=== PATIENT | female | born 1945 | race Caucasian/White ===

== ENCOUNTER → 2018-03-14 | Outpatient (CLI) | payer MEDICARE ==
--- NOTE | 2018-03-14 10:24 | RADIOLOGY REPORT (SQ) ---
EXAM DESCRIPTION: CT ABD/PELVIS NO ORAL OR IV COMPLETED DATE/TIME: 03/14/2018 10:09 am REASON FOR STUDY: ABDOMINAL PAIN, NAUSEA AND VOMITING R10.9 UNSPECIFIED ABDOMINAL PAIN R11.2 NAUSE A WITH VOMITING, UNSPECIFIED COMPARISON: None. TECHNIQUE: CT scan of the abdomen and pelvis performed without intravenous or oral contrast. Images reviewed with lung, soft tissue, and bone windows. Reconstructed coronal and sagittal MPR images revi ewed. All images stored on PACS. All CT scanners at this facility use dose modulation, iterative reconstruction, and/or weight based d osing when appropriate to reduce radiation dose to as low as reasonably achievable (ALARA). [facility]: Dose Right [facility]: CareDose [facility]: Dose Right [facility]: Teradose 4D [facility]: [employer] RADIATION DOSE: CT Rad equipment meets quality standard of care and radiation dose reduction techniq ues were employed. CTDIvol: 16.4 mGy. DLP: 821 mGy-cm.mGy. LIMITATIONS: None. FINDINGS: LOWER CHEST: No significant findings. No nodules or infiltrates. NON-CONTRASTED LIVER, SPLEEN, ADRENALS: Evaluation limited by lack of IV contrast. No identified sign ificant masses. Calcified granulomata liver and spleen. PANCREAS: No masses. Inflammatory changes along the head of the pancreas appear to be related to the seconds and 3rd portions of duodenum. . GALLBLADDER: Surgically absent. RIGHT KIDNEY AND URETER: No suspicious masses. Assessment limited by lack of IV contrast. No signif icant calcifications. No hydronephrosis or hydroureter. LEFT KIDNEY AND URETER: No suspicious masses. Assessment limited by lack of IV contrast. No signifi cant calcifications. No hydronephrosis or hydroureter. AORTA AND RETROPERITONEUM: No aneurysm. No retroperitoneal masses or adenopathy. BOWEL AND PERITONEAL CAVITY: Inflammatory changes along the duodenal bulb and seconds and 3rd portion s of the duodenum. No definitive ulcer but certainly raises the question of peptic ulcer disease. C ommon bile duct measures 1.3 cm. Possibly related to prior cholecystectomy. APPENDIX: Normal. PELVIS, BLADDER, AND ABDOMINAL WALL:No abnormal masses. No free fluid. Bladder normal. BONES: No significant findings. OTHER: No other significant finding. IMPRESSION: Inflammatory changes along the duodenal bulb, seconds, 3rd portions of the duodenum iban cent to the pancreas. No definitive ulcer. Findings appear to be primarily related to the duodenum rather than the pancreas, however pancreatitis is in the differential. Dilated common bile duct 1.3 cm. Possibly related to prior cholecystectomy. COMMENT: Quality ID # [id number]: Final reports with documentation of one or more dose reduction techniques (e.g., Automated exposure control, adjustment of the mA and/or kV according to patient size, use of iterative reconstruction technique) TECHNICAL DOCUMENTATION: JOB ID: [id number] 1540 [employer]- All Rights Reserved Reading location - IP/workstation name: [email or web address]
== END ==
LOC: RAD 09:49
PROVIDERS: ATTEND Internal Medicine
DX: R10.9 Unspecified abdominal pain (principal); R11.2 Nausea with vomiting, unspecified
CPT/HCPCS: 74176

== ENCOUNTER → 2019-01-14 | Day surgery (SDC) | payer MEDICARE ==
[~2019-01-14] MED LIST: BUPIVACAINE HCL 0.5 % INJ/PF 30 ML SDV ONE; LIDOCAINE 1% INJ-PF (10 MG/ML) 30 ML SDV ONE
--- NOTE | 2019-01-14 10:51 | Operative Report ---
PREOPERATIVE DIAGNOSIS: Spondylolisis without myopathy or radiculopathy M47.818// Lumbar Sacral Spondylolisis without myopathy or radiculopathy M47.817 POSTOPERATIVE DIAGNOSIS:Spondylolisis without myopathy or radiculopathy M47.818// Lumbar Sacral Spondylolisis without myopathy or radiculopathy M47.817 PROCEDURE: 1. Radiofrequency Ablation of left L5 dorsal Ramus 2. Sacroiliac Joint Ablation - Lateral Branches of left S1, S2, S3 DATE OF PROCEDURE: January 14, 2019 ANESTHESIA: Local COMPLICATIONS: None CONSENT: A full description of the procedure was provided including benefits as well as possible complications. All questions were answered and informed consent was given and signed. ASA guidelines for fasting were verified prior to sedation. PROCEDURE IN DETAIL The patient was brought into the fluoroscopy suite and carefully assisted into the prone position on the fluoroscopy table and allowed to adjust to a position of comfort. A grounding pad was placed on the right thigh. The low back and buttocks were widely prepped with a chloraprep solution, allowed to air dry and draped in standard sterile surgical fashion. Local anesthesia was provided by 12 mL of 1 % lidocaine delivered with a 25 g needle. PROCEDURE #1: Radiofrequency Ablation of Dorsal Ramus of left L5. A 17g 75 mm radiofrequency introducer needle was placed to the planned anatomic target, guided with intermittent fluoroscopy with a perpendicular approach, to terminally place at the left sacral ala. The stylets were removed and the radiofrequency probes with a 4mm active tip were then inserted. Needle tip position of the probes were verified in the AP, oblique, and lateral views. At each site, the medial branch nerve was stimulated at 2Hz to a maximum of 1-2vo lts determined to finalize safe needle and electrode placement. The patient was awake and responsive during this portion of the procedure. Each target was anesthetized with 2mL of 2 % Sensorcaine anesthesia for lesioning and then each target was lesioned at 80 degrees Celsius for 2 minutes and 30 seconds. Tissue impedences were noted to be between 250 and 500 Ohms. PROCEDURE #2: Radiofrequency Ablation of left S1, S2, S3 Lateral Branches Using the AP fluoroscopic view for visualization of the lateral PSFA as defined by the pre-placed 27-gauge Quincke needles, appropriate skin starting positions were defined. Using the PSFA as a "clock-face", the positions were: S1; left = 1 and 5 oclock S2; left = 1 and 5 oclock S3; left = 3 oclock Using fluoroscopic guidance, a 17g introducer needle was inserted sequentially onto the target positions described above until the introducer tip touched the bony surface of the sacrum. The stylet was withdrawn from the introducer and the radiofrequency probe with a 4 mm active tip was fully inserted into the introducer. A lateral view was obtained for standard reference. At each of the targets, needle placement was verified with the use of multi-planar fluoroscopy. The needle tip position was approximately 7 - 10mm lateral to the PSFA as determined by using an Epsilon ruler. At each site, the lateral branch nerve was stimulated at 2 Hz to a maximum of 1- 2 volts determined to finalize safe needle and electrode placement. The patient was awake and responsive during this portion of the procedure. Each target was anesthetized with 2 mL of 2 % Sensorcaine anesthesia for lesioning and then each target was lesioned at 80 degrees Celsius for 2 minutes and 30 seconds. Tissue impedences were noted to be between 250- 500 Ohms. At the conclusion of the lesioning the needles were removed and bandages placed over the needle placement sites and the patient returned to the supine position on a stretcher and transported to the recovery room without hemodynamic, neurologic, or allergic reactions. Fluoroscopic images were printed for hard copy recording and digitally archived. FLUOROSCOPIC INTERPRETATION: Appropriate epidurogram obtained. Appropriate l esioning of the 10 targets noted. POST PROCEDURE EVALUATION: The patient was comfortable in the recovery room. The patient is aware that pain may worsen before remitting and 4 6 weeks may be required prior to the onset of pain relief. IMPRESSION: 1. Technically successful sacral lateral branch, lumbar dorsal ramus for denervation from L5-S3 on the left without complication. 2. RTC in 2 weeks. 3. Estimated Blood Loss: None 4. Fluoroscopy time: 30 seconds
== END ==
LOC: RAD 09:56
PROVIDERS: ATTEND Family Medicine
DX: M47.817 Spondylosis without myelopathy or radiculopathy, lumbosacral region (principal)
CPT/HCPCS: 64635; 64640 ×3; J3490 ×2

== ENCOUNTER 2019-01-23 19:53 | Observation (INO) | payer MEDICARE ==
--- NOTE | 2019-01-23 20:04 | ER Document Report ---
ED Medical Screen (RME) - General Chief Complaint: Headache Stated Complaint: HEADACHE Time Seen by Provider: 01/23/19 19:59 Primary Care Provider: LANE VEGA DO [Primary Care Provider] - Follow up as needed Mode of Arrival: Wheelchair Information source: Patient Notes: 73-year-old female presents to ED for severe headache with numbness to the right side of her face and neck. She states she went to bed last night she was fine she woke up this morning with this headache and it is not gotten any better. She states she is slept most of the day. She had a carotid endarterectomy on the right in September 2005 she had stents put in the left September 07 of this year and she has renal stents 2005 she states she had a stent put in her abdomen next to her aorta in September 2018. She denies ever having a stroke in the past. She takes blood pressure medicine her blood pressure is 129/38 at this time. She states she is on aspirin at this time she was on Xarelto for a year but has not been on it since September 05. I have greeted and performed a rapid initial assessment of this patient. A comprehensive ED assessment and evaluation of the patient, analysis of test results and completion of medical decision making process will be conducted by an additional ED providers. TRAVEL OUTSIDE OF THE [place] IN LAST 30 DAYS: No - Related Data Allergies/Adverse Reactions: meperidine HCl [From Demerol] Allergy (Unknown, Unverified 03/23/11 08:06) metoclopramide HCl [From Reglan] Allergy (Unknown, Unverified 03/23/11 08:06) Doctor's Discharge - Discharge Referrals: LANE VEGA DO [Primary Care Provider] - Follow up as needed
[2019-01-23 20:52] LABS: ABSOLUTE BASOPHILS # (AUTO) 0.1 10^3/uL (0.0-0.2); ABSOLUTE EOSINOPHILS # (AUTO) 0.2 10^3/uL (0.0-0.6); ABSOLUTE LYMPHOCYTES (AUTO) 1.9 10^3/uL (0.5-4.7); ABSOLUTE NEUT (AUTO) 5.3 10^3/uL (1.7-8.2); BASOPHILS % (AUTO) 1.3 % (0-2); EOSINOPHILS % (AUTO) 2.5 % (0-6); HEMATOCRIT 36.9 % (36.0-47.0); HEMOGLOBIN 11.7 g/dL (12.0-15.5); LYMPHOCYTES % (AUTO) 21.9 % (13-45); MEAN CORPUSCULAR HGB CONC 31.7 g/dL (32.0-36.0); MEAN CORPUSCULAR VOLUME 88 fl (80-97); MONOCYTES % (AUTO) 12.2 % (3-13); PLATELET COUNT 251 10^3/uL (150-450); RED BLOOD COUNT 4.17 10^6/uL (3.72-5.28); RED CELL DISTRIBUTION WIDTH 16.9 % (11.5-14.0); SEGMENTED NEUTROPHILS % (AUTO) 62.1 % (42-78); TOTAL CELLS COUNTED % (AUTO) 100 %; WHITE BLOOD COUNT 8.5 10^3/uL (4.0-10.5)
--- NOTE | 2019-01-23 21:00 | RADIOLOGY REPORT (SQ) ---
EXAM DESCRIPTION: RadLex: CT HEAD WITHOUT IV CONTRAST CLINICAL HISTORY: 73 years Female; Severe headache TECHNIQUE: Noncontrast CT head. All CT scans at this facility use dose modulation, iterative reconstruction, and/or weight based dosing when appropriate to reduce radiation dose to as low as reasonably achievable. COMPARISON: None. FINDINGS: Diaz matter, white matter, ventricles, and cisterns are within normal limits. No acute hemorrhage or mass effect. Visualized portions of paranasal sinuses and mastoids are clear. Visualized portions of the calvarium are within normal limits. IMPRESSION: 1. No acute intracranial findings.
[2019-01-23 21:05] LABS: INTERNATIONAL RATION (INR) 0.98
[2019-01-23 21:10] LABS: ALBUMIN 3.7 g/dL (3.5-5.0); ALKALINE PHOSPHATASE 111 U/L (38-126); ANION GAP 9 (5-19); ASPARTATE AMINO TRANSFERASE 18 U/L (14-36); BILIRUBIN,DIRECT 0.1 mg/dL (0.0-0.4); BILIRUBIN,TOTAL 0.5 mg/dL (0.2-1.3); BLOOD UREA NITROGEN 22 mg/dL (7-20); CARBON DIOXIDE 28 mmol/L (22-30); CHLORIDE 106 mmol/L (98-107); GLUCOSE 124 mg/dL (75-110); TOTAL PROTEIN 6.7 g/dL (6.3-8.2)
[2019-01-23] MEDS ORDERED: NORMAL SALINE 1000 ML 1,000 ML IV ONE (21:55)
[2019-01-23 22:18] LABS: APPEARANCE,URINE CLEAR; BILIRUBIN,URINE NEGATIVE (NEGATIVE); COLOR,URINE YELLOW; GLUCOSE, URINE NEGATIVE (NEGATIVE); KETONES,URINE NEGATIVE (NEGATIVE); LEUKOCYTE ESTERASE,URINE TRACE (NEGATIVE); NITRITE,URINE NEGATIVE (NEGATIVE); PROTEIN,URINE NEGATIVE (NEGATIVE); URINE SPECIFIC GRAVITY 1.013; UROBILINOGEN,URINE NEGATIVE mg/dL (<2.0)
[2019-01-23] MEDS ORDERED: HYDROMORPHONE HCL INJ/PF 2 MG/ML AMPULE IV ONE ×2 (22:46→23:41)
[2019-01-23] MEDS ORDERED: PROMETHAZINE HCL INJ 25 MG/1 ML VIAL IV ONE (22:46)
--- NOTE | 2019-01-23 23:29 | RADIOLOGY REPORT (SQ) ---
EXAM DESCRIPTION: XR CHEST 1 VIEW COMPLETED DATE/TME: 01/23/2019 22:28 CLINICAL HISTORY: possible cva COMPARISON: None FINDINGS: EKG leads project over the chest. The aorta is tortuous. Cardiac silhouette is prominent in size which could be secondary to cardiomegaly. There is no focal parenchymal or pleural disease. There is no acute osseous process visualized. IMPRESSION: No evidence of acute cardiopulmonary disease.
[2019-01-23 23:32] LABS: CREATINE KINASE MB 0.88 ng/mL (<4.55)
[2019-01-23 23:37] LABS: TROPONIN I < 0.012 ng/mL
--- NOTE | 2019-01-24 00:28 | EKG REPORT ---
SEVERITY:- ABNORMAL ECG - SINUS RHYTHM RIGHT BUNDLE BRANCH BLOCK PROBABLE ANTEROSEPTAL INFARCT, AGE INDETERM : Confirmed by: Ton Dickson 24-Jan-2019 00:27:35
--- NOTE | 2019-01-24 00:53 | ER Document Report ---
ED Headache - General Chief Complaint: Headache, Worst Ever Stated Complaint: HEADACHE Time Seen by Provider: 01/23/19 19:59 Mode of Arrival: Wheelchair Notes: Patient is a 73-year-old female presents to the emergency department for right- sided headache and left-sided facial droop. Patient states she woke up this mor jagaur with a pressure in the right side of her head. Patient's denying any URI symptoms or fever. States she has taken a total of 4 extra strength Tylenol throughout the day. States typically when she has routine headaches Tylenol helps. States Tylenol has not helped which is why she presents to the emergency room. Patient voices no history of migraines. Patient denies any upper or lower extremity weakness. Patient's denying any trauma or injury to her head or neck. Patient is denying any fever, rash, exposures to tick bites. Patient voices to nursing staff that this is the "worst headache of her life." Patient does not voice that to myself. I asked her if this is the worst headache of her life and she shakes her head no. Patient lies in bed in no apparent distress has a easy conversation with the lights on. There are no signs of photophobia. She is seen laughing with her grandchildren in the room at one point in time. Patient voices she was on Xarelto for a DVT. States her primary care provider stopped that in September. States she does have an extensive history of peripheral vascular disease with 2 left subclavian stents as well as a stent in her abdomen. TRAVEL OUTSIDE OF THE [place] IN LAST 30 DAYS: No - Related Data Allergies/Adverse Reactions: meperidine HCl [From Demerol] Allergy (Unknown, Unverified 03/23/11 08:06) metoclopramide HCl [From Reglan] Allergy (Unknown, Unverified 03/23/11 08:06) Past Medical History - General Information source: Patient - Social History Smoking Status: Never Smoker Family History: Reviewed & Not Pertinent Patient has suicidal ideation: No Patient has homicidal ideation: No Review of Systems - Review of Systems Constitutional: denies: Fever EENT: No symptoms reported Cardiovascular: denies: Chest pain, Dyspnea Respiratory: denies: Short of breath Gastrointestinal: denies: Abdominal pain Genitourinary: No symptoms reported Female Genitourinary: No symptoms reported Musculoskeletal: No symptoms reported Skin: No symptoms reported Hematologic/Lymphatic: No symptoms reported Neurological/Psychological: See HPI Physical Exam - Vital signs Vitals: Temp Pulse Resp BP Pulse Ox 98.1 F 57 L 18 129/38 H 93 01/23/19 19:59 01/23/19 19:59 10 19:59 10 19:59 10 19:59 - Notes Notes: GENERAL: Alert, interacts well. No acute distress. HEAD: Normocephalic, atraumatic. Slight left facial droop noted. EYES: Pupils equal, round, and reactive to light. Extraocular movements intact. ENT: Oral mucosa moist, tongue midline. NECK: Full range of motion. Supple. Trachea midline. LUNGS: Clear to auscultation bilaterally, no wheezes, rales, or rhonchi. No respiratory distress. HEART: Regular rate and rhythm. No murmur ABDOMEN: Soft, non-tender. Non-distended. Bowel sounds present in all 4 quadrants. EXTREMITIES: Moves all 4 extremities spontaneously. No edema, normal radial and dorsalis pedis pulses bilaterally. No cyanosis. 5 out of 5 strength noted all 4 extremities. BACK: no cervical, thoracic, lumbar midline tenderness. No saddle anesthesia, normal distal neurovascular exam. NEUROLOGICAL: Alert and oriented x3. Normal speech. cranial nerves II through XII grossly intact. PSYCH: Normal affect, normal mood. SKIN: Warm, dry, normal turgor. No rashes or lesions noted. Course - Re-evaluation Re-evalutation: I have discussed this case with my attending Dr. Woodard multiple times. He has gone to the bedside to evaluate the patient. Although the patient is stating the pain medication we are administering her is not helping upon my second evaluation she was sleeping, easily arousable on verbal stimuli. Patient has no photophobia, no nuchal rigidity, she denies that this is the worst headache of her life. Patient voices she has slight left-sided facial droop. Mends NIH scale is +2 left patient's left lower extremity has some weakness compared to the right lower extremity and patient's left-sided facial droop. Patient's symptoms all started this morning, she is well out of the window for any TPA candidate. I discussed this case with hospitalist Dr. Holm who will admit the patient to [facility]. 01/24/19 01:49 EKG shows sinus rhythm rate of 61, QTc 464, RBBB. - Vital Signs Vital signs: Temp Pulse Resp BP Pulse Ox 98.1 F 59 L 12 101/39 L 98 01/23/19 19:59 01/23/19 22:30 01/24/19 01:01 01/24/19 01:01 01/24/19 01:01 - Laboratory Result Diagrams: 01/23/19 20:41 01/23/19 20:41 Laboratory results interpreted by me: 01/23/19 01/23/19 01/23/19 20:41 20:41 21:38 Hgb 11.7 L MCHC 31.7 L RDW 16.9 H BUN 22 H Creatinine 1.40 H Est GFR ( Amer) 44 L Est GFR (MDRD) Non-Af 37 L Glucose 124 H Ur Leukocyte Esterase TRACE H Discharge - Discharge Clinical Impression: TIA (transient ischemic attack) Headache Qualifiers: Headache type: unspecified Headache chronicity pattern: acute headache Intractability: intractable Qualified Code(s): R51 - Headache Condition: Stable Disposition: ADMITTED INPATIENT Admitting Provider: Alta (Hospitalist) Unit Admitted: [facility]
[2019-01-24] MEDS ORDERED: ONDANSETRON HCL INJ/PF 4 MG/2 ML SDV IV PRN (01:23)
[2019-01-24] MEDS ORDERED: MAGNESIUM HYDROXIDE SUSP 30 ML UDCUP PO PRN (01:23)
[2019-01-24] MEDS ORDERED: LABETALOL HCL INJ 20 MG/4 ML DISP.SYRIN IV PRN (01:23)
[2019-01-24] MEDS ORDERED: ACETAMINOPHEN 325 MG TABLET PO PRN (01:23)
[2019-01-24] MEDS ORDERED: TEMAZEPAM 15 MG CAPSULE PO PRN (01:23)
[2019-01-24 02:33] LABS: FREE T3 2.98 pg/mL (2.77-5.27); FREE T4 (FREE THYROXINE) 0.86 ng/dL (0.78-2.19)
[2019-01-24] MEDS: TRAMADOL HCL 50 MG TABLET PO PRN ×2 (03:06→20:16)
--- NOTE | 2019-01-24 03:55 | PDOC H&P ---
History of Present Illness Admission Date/PCP: 01/24/2019 00:54 ZENY LY MD Patient complains of: Left facial numbness History of Present Illness: RENETTA HARRINGTON is a 73 year old female who presented to the emergency room with acute left facial numbness. Patient admits that she woke up this morning with a headache on the right side of her head and left perioral numbness. The mild le ft facial numbness has been persistent throughout the day without change. She describes the headache as a constant severe sharp throbbing pressure sensation of the right parietal and occipital regions with radiation into the posterior cervical region. She tried Tylenol at home without improvement. She denies prior similar episodes and has not identified any additional aggravating or ameliorating factors for her left facial numbness. In the emergency room she was found to have stable vital signs and an unremarkable laboratory and radiographic evaluation for her TIA/CVA. Due to her persistence of symptoms and a plethora of risk factors/comorbidities, the patient was admitted to the [facility] er the stroke protocol. Past Medical History Cardiac Medical History: Reports: Congestive Heart Failure, Coronary Artery Disease, DVT, Hyperlipidema, Hypertension, Peripheral Vascular Disease Denies: Atrial Fibrillation, Myocardial Infarction, Pulmonary Embolism Pulmonary Medical History: Reports: Bronchitis, Chronic Obstructive Pulmonary Disease (COPD), Sleep Apnea Denies: Asthma EENT Medical History: Reports: Nose - Allergic rhinitis Denies: Cataracts, Ears - Hearing aids Neurological Medical History: Reports: Ischemic CVA Denies: Hemorrhagic CVA, Multiple Sclerosis, Seizures Endocrine Medical History: Reports: Obesity Denies: Diabetes Mellitus Type 1, Diabetes Mellitus Type 2, Hyperthyroidism, Hypothyroidism Renal/ Medical History: Reports: Chronic Kidney Disease Denies: Nephrolithiasis Malignancy Medical History: Reports: None GI Medical History: Reports: Diverticulitis, Gastroesophageal Reflux Disease, Peptic Ulcer Disease, Other - Pancreatitis Denies: Cirrhosis, Crohn's Disease, Hepatitis, Ulcerative Colitis Musculoskeltal Medical History: Denies: Arthritis, Gout Skin Medical History: Denies: Eczema, Psoriasis Psychiatric Medical History: Reports: General Anxiety Disorder, Tobacco Dependency, Other - Insomnia Denies: Alcohol Dependency, Substance Abuse Traumatic Medical History: Reports: None Hematology: Reports: Anemia Denies: Bleeding Tendencies Infectious Medical History: Reports: None Past Surgical History Past Surgical History: Sigmoid colectomy, colon polyp removal via colonoscopy, urinary bladder surgery, throat/vocal cord surgery, rectocele repair Past Surgical History: Reports: Appendectomy, Cardiac Catheterization, Carotid Endarterectomy - Right, Cholecystectomy, Herniorrhaphy, Hysterectomy, Knee Replacement, Vascular Surgery - Stents: Bilateral subclavian bypass, bilateral renal arteries, aortic stent Social History Information Source: Patient Lives with: Family Smoking Status: Former Smoker Electronic Cigarette use?: No Frequency of Alcohol Use: Rare Hx Recreational Drug Use: No Drugs: None Hx Prescription Drug Abuse: No - Advance Directive Resuscitation Status: Full Code Surrogate healthcare decision maker:: Carley Talavera Family History Family History: CAD, DM, Hypertension, Other - Alzheimer's disease. denies: Malignancy Parental Family History Reviewed: Yes Children Family History Reviewed: No Sibling(s) Family History Reviewed.: Yes Medication/Allergy Allergies/Adverse Reactions: meperidine HCl [From Demerol] Allergy (Unknown, Unverified 03/23/11 08:06) metoclopramide HCl [From Reglan] Allergy (Unknown, Unverified 03/23/11 08:06) IVP dye Allergy (Uncoded 01/24/19 03:18) Review of Systems Constitutional: PRESENT: as per HPI, headache(s). ABSENT: chills, fever(s) Eyes: ABSENT: visual disturbances, other - Eye pain Ears: ABSENT: hearing changes, other - Ear pain Nose, Mouth, and Throat: ABSENT: mouth pain, sore throat Cardiovascular: ABSENT: chest pain, palpitations Respiratory: ABSENT: cough, dyspnea Gastrointestinal: ABSENT: abdominal pain, constipation, diarrhea, nausea, vomiting Genitourinary: ABSENT: dysuria, hematuria Musculoskeletal: ABSENT: back pain, joint swelling, muscle weakness Integumentary: ABSENT: pruritus, rash Neurological: PRESENT: as per HPI, numbness - Left perioral region. ABSENT: confusion, convulsions, focal weakness, memory loss, syncope, vertigo Psychiatric: ABSENT: anxiety, depression Endocrine: ABSENT: cold intolerance, heat intolerance Hematologic/Lymphatic: ABSENT: easy bleeding, easy bruising Allergic/Immunologic: ABSENT: seasonal rhinorrhea Physical Exam Vital Signs: Temp Pulse Resp BP Pulse Ox 98.1 F 59 L 19 117/48 L 96 01/23/19 19:59 01/23/19 22:30 01/23/19 23:00 01/23/19 23:00 01/23/19 23:00 Intake & Output 1001/23/19 01/24/19 23:59 23:59 23:59 Intake Total 1000 Balance 1000 Weight 85.9 kg General appearance: PRESENT: no acute distress, cooperative Head exam: PRESENT: atraumatic, normocephalic Eye exam: PRESENT: conjunctiva pink. ABSENT: conjunctival injection, scleral icterus Ear exam: PRESENT: normal external ear exam. ABSENT: bleeding, drainage Mouth exam: PRESENT: dry mucosa, neck supple Neck exam: ABSENT: thyromegaly, tracheal deviation Respiratory exam: PRESENT: clear to auscultation jareth, symmetrical, unlabored Cardiovascular exam: PRESENT: RRR. ABSENT: clicks, gallop, rubs Pulses: PRESENT: normal radial pulses, normal dorsalis pedis pul Vascular exam: PRESENT: normal capillary refill. ABSENT: pallor GI/Abdominal exam: PRESENT: normal bowel sounds, soft. ABSENT: tenderness Rectal exam: PRESENT: deferred Extremities exam: ABSENT: joint swelling, pedal edema Musculoskeletal exam: ABSENT: deformity, dislocation Neurological exam: PRESENT: alert, oriented to person, oriented to place, oriented to time, oriented to situation, motor sensory deficit. ABSENT: CN II- XII grossly intact - Minimal muscles of facial expression weakness in the central distribution of left 7th (facial) nerve Psychiatric exam: PRESENT: appropriate affect, normal mood Skin exam: PRESENT: dry, intact, warm. ABSENT: jaundice, rash, urticaria Results Laboratory Results: 01/23/19 20:41 01/23/19 20:41 01/23/19 01/23/19 01/23/19 20:41 20:41 21:38 WBC 8.5 RBC 4.17 Hgb 11.7 L Hct 36.9 MCV 88 MCH 28.0 MCHC 31.7 L RDW 16.9 H Plt Count 251 Seg Neutrophils % 62.1 Sodium 143.3 Potassium 4.0 Chloride 106 Carbon Dioxide 28 Anion Gap 9 BUN 22 H Creatinine 1.40 H Est GFR ( Amer) 44 L Glucose 124 H Calcium 9.0 Total Bilirubin 0.5 AST 18 Alkaline Phosphatase 111 Total Protein 6.7 Albumin 3.7 Urine Color YELLOW Urine Appearance CLEAR Urine pH 5.0 Ur Specific [place] 1.013 Urine Protein NEGATIVE Urine Glucose (UA) NEGATIVE Urine Ketones NEGATIVE Urine Blood NEGATIVE Urine Nitrite NEGATIVE Ur Leukocyte Esterase TRACE H Urine WBC (Auto) 2 Urine RBC (Auto) 1 01/23/19 01/23/19 20:41 20:41 Creatine Kinase 81 CK-MB (CK-2) 0.88 Troponin I < 0.012 Impressions: Head CT 01/23/19 20:04 IMPRESSION: 1. No acute intracranial findings. Chest X-Ray 01/23/19 22:28 IMPRESSION: No evidence of acute cardiopulmonary disease. Assessment and Plan - Diagnosis (1) Left facial numbness Is this a current diagnosis for this admission?: Yes Plan: Patient will be admitted to the stroke protocol on the [facility]. She will have carotid Doppler evaluation as well as an echocardiogram and an MRI of the brain without contrast. Physical therapy, occupational therapy and speech therapy evaluations will be performed. Patient will be referred for consultation with the stroke nurse and dietitian as well as delinquency prevention social worker. She will be treated according to the stroke protocol with appropriate antiplatelet agent as well as appropriate occasions for control of her other chronic medical processes. (2) Headache Qualifiers: Headache type: unspecified Headache chronicity pattern: acute headache Intractability: intractable Qualified Code(s): R51 - Headache Is this a current diagnosis for this admission?: Yes Plan: Patient will receive morphine 2 to 4 mg IV every 2 hours on a as needed basis for control for headache. Associated nausea will be treated with Zofran 4 mg IV every 4 hours. MRI of the brain is ordered. A thyroid profile will be obtained. (3) Chronic renal insufficiency, stage III (moderate) Is this a current diagnosis for this admission?: Yes Plan: Patient will be treated with supportive and symptomatic cares. Her renal failure status will be monitored on regular basis with metabolic profiles. (4) Peripheral vascular disease Is this a current diagnosis for this admission?: Yes Plan: A lipid profile will be obtained. Patient will be further treated based upon the results of her lipid profile. - Time Time Spent with patient: 25-34 minutes Medications reviewed and adjusted accordingly: Yes Anticipated discharge: Home - Inpatient Certification Based on my medical assessment, after consideration of the patient's comorbidities, presenting symptoms, or acuity I expect that the services needed warrant INPATIENT care.: Yes I certify that my determination is in accordance with my understanding of Medicare's requirements for reasonable and necessary INPATIENT services [42 CFR 412.3e].: Yes Medical Necessity: Significant Comorbidiites Make Outpatient Treatment Too Risky, Need Close Monitoring Due to Risk of Patient Decompensation, Need For Continuous Telemetry Monitoring, Need for Neurological Checks, Need for Pain Control, Risk of Complication if Not Cared For in Hospital
[2019-01-24] MEDS ORDERED: KETOROLAC TROMETHAMINE INJ/PF 30 MG/1 ML SDV IV ONE (04:30)
[2019-01-24] MEDS ORDERED: DIAZEPAM INJ 10 MG/2 ML DISP.SYRIN IV ONE (05:00)
[2019-01-24] MEDS ORDERED: DIAZEPAM INJ 10 MG/2 ML DISP.SYRIN IV SCH (06:00)
[2019-01-24] MEDS: HEPARIN SOD (PORCINE) 5,000 UNIT/ML 1 ML VIAL SUBCUT SCH ×3 (06:44→22:23)
[2019-01-24] MEDS ORDERED: DEXAMETHASONE SOD PHOS INJ 10 MG/1 ML VIAL IM ONE (08:20)
[2019-01-24] MEDS ORDERED: KETOROLAC TROMETHAMINE INJ/PF 30 MG/1 ML SDV IV SCH ×2 (09:00→10:00)
[2019-01-24 09:03] LABS: HEMATOCRIT 33.6 % (36.0-47.0); HEMOGLOBIN 10.6 g/dL (12.0-15.5); MEAN CORPUSCULAR HEMOGLOBIN 28.1 pg (27.0-33.4); MEAN CORPUSCULAR HGB CONC 31.7 g/dL (32.0-36.0); MEAN CORPUSCULAR VOLUME 89 fl (80-97); PLATELET COUNT 206 10^3/uL (150-450); RED BLOOD COUNT 3.79 10^6/uL (3.72-5.28); RED CELL DISTRIBUTION WIDTH 16.7 % (11.5-14.0); WHITE BLOOD COUNT 6.4 10^3/uL (4.0-10.5)
[2019-01-24 09:25] LABS: ALBUMIN 3.3 g/dL (3.5-5.0); ALKALINE PHOSPHATASE 97 U/L (38-126); ANION GAP 11 (5-19); ASPARTATE AMINO TRANSFERASE 19 U/L (14-36); BILIRUBIN,DIRECT 0.2 mg/dL (0.0-0.4); BILIRUBIN,TOTAL 0.5 mg/dL (0.2-1.3); BLOOD UREA NITROGEN 20 mg/dL (7-20); CALCIUM 8.8 mg/dL (8.4-10.2); CARBON DIOXIDE 24 mmol/L (22-30); CHLORIDE 110 mmol/L (98-107); CHOLESTEROL 108.29 mg/dL (0-200); GLUCOSE 93 mg/dL (75-110); POTASSIUM 4.7 mmol/L (3.6-5.0); TOTAL PROTEIN 6.1 g/dL (6.3-8.2); TRIGLYCERIDES 132 mg/dL (<150)
[2019-01-24 09:36] LABS: DIRECT LDL 56 mg/dL (<100)
[2019-01-24] MEDS: CLOPIDOGREL BISULFATE 75 MG TABLET PO SCH (09:37)
[2019-01-24] MEDS ORDERED: LIDOCAINE 1% INJ (10 MG/ML) 10 ML MDV INJ ONE (10:30)
[2019-01-24] MEDS ORDERED: METHYLPREDNISOLONE ACETATE INJ 40 MG/1 ML ML IM ONE (10:30)
--- NOTE | 2019-01-24 12:03 | PDOC PROGRESS REPORT ---
Subjective Progress Note for:: 01/24/19 Subjective:: Patient was admitted last night for a right sided occipital parietal headache as well as numbness and tingling over this area. He also was complaining of some left-sided facial numbness. However in reading the ER note as well as the hospitalist note there are several contradictory statements concerning this in the left side of the face, numbness in the left side of the face, worst headache of her life, medicine not helping. There also notation that the patient is seen in the room laughing with her grandchildren. Describes his headache to me as starting in the back of the head on the right side going up over the parietal region. She actually draws a line as to where this pain is located and starts. Exquisitely tender to palpate over the occipital foramen right but not on the left. No signs of focal neurologic deficit. Reason For Visit: NEW ONSET FACIAL WEAKNESS,ACUTE INTRACTABLE Physical Exam Vital Signs: Temp Pulse Resp BP Pulse Ox 97.5 F 52 L 18 109/37 L 93 01/24/19 07:59 01/24/19 08:00 01/24/19 08:00 01/24/19 08:00 01/24/19 08:50 Intake & Output 01/23/19 01/24/19 01/25/19 06:59 06:59 06:59 Intake Total 1100 Balance 1100 Weight 84.7 kg General appearance: PRESENT: mild distress, other - Secondary to pain over the right occipital parietal region Respiratory exam: PRESENT: clear to auscultation jareth. ABSENT: rales, rhonchi, wheezes Cardiovascular exam: PRESENT: RRR. ABSENT: diastolic murmur, rubs, systolic murmur Neurological exam: PRESENT: alert, other - Very tender to palpate over the right occipital foramen, no tenderness over the left side. Psychiatric exam: PRESENT: appropriate affect, normal mood. ABSENT: homicidal ideation, suicidal ideation Results Laboratory Results: 01/24/19 08:14 01/24/19 08:14 01/23/19 01/23/19 01/23/19 20:41 20:41 20:41 WBC 8.5 RBC 4.17 Hgb 11.7 L Hct 36.9 MCV 88 MCH 28.0 MCHC 31.7 L RDW 16.9 H Plt Count 251 Seg Neutrophils % 62.1 Sodium 143.3 Potassium 4.0 Chloride 106 Carbon Dioxide 28 Anion Gap 9 BUN 22 H Creatinine 1.40 H Est GFR ( Amer) 44 L Glucose 124 H Calcium 9.0 Magnesium Total Bilirubin 0.5 AST 18 Alkaline Phosphatase 111 Total Protein 6.7 Albumin 3.7 Triglycerides Cholesterol LDL Cholesterol Direct VLDL Cholesterol HDL Cholesterol TSH Free T4 0.86 Free T3 pg/mL 2.98 Urine Color Urine Appearance Urine pH Ur Specific [place] Urine Protein Urine Glucose (UA) Urine Ketones Urine Blood Urine Nitrite Ur Leukocyte Esterase Urine WBC (Auto) Urine RBC (Auto) 01/23/19 01/24/19 01/24/19 21:38 08:14 08:14 WBC 6.4 RBC 3.79 Hgb 10.6 L Hct 33.6 L MCV 89 MCH 28.1 MCHC 31.7 L RDW 16.7 H Plt Count 206 Seg Neutrophils % Sodium 145.0 Potassium 4.7 Chloride 110 H Carbon Dioxide 24 Anion Gap 11 BUN 20 Creatinine 1.23 Est GFR ( Amer) 52 L Glucose 93 Calcium 8.8 Magnesium 1.6 Total Bilirubin 0.5 AST 19 Alkaline Phosphatase 97 Total Protein 6.1 L Albumin 3.3 L Triglycerides 132 Cholesterol 108.29 LDL Cholesterol Direct 56 VLDL Cholesterol 26.0 HDL Cholesterol 32 L TSH Free T4 Free T3 pg/mL Urine Color YELLOW Urine Appearance CLEAR Urine pH 5.0 Ur Specific [place] 1.013 Urine Protein NEGATIVE Urine Glucose (UA) NEGATIVE Urine Ketones NEGATIVE Urine Blood NEGATIVE Urine Nitrite NEGATIVE Ur Leukocyte Esterase TRACE H Urine WBC (Auto) 2 Urine RBC (Auto) 1 01/24/19 08:14 WBC RBC Hgb Hct MCV MCH MCHC RDW Plt Count Seg Neutrophils % Sodium Potassium Chloride Carbon Dioxide Anion Gap BUN Creatinine Est GFR ( Amer) Glucose Calcium Magnesium Total Bilirubin AST Alkaline Phosphatase Total Protein Albumin Triglycerides Cholesterol LDL Cholesterol Direct VLDL Cholesterol HDL Cholesterol TSH 2.97 Free T4 Free T3 pg/mL Urine Color Urine Appearance Urine pH Ur Specific [place] Urine Protein Urine Glucose (UA) Urine Ketones Urine Blood Urine Nitrite Ur Leukocyte Esterase Urine WBC (Auto) Urine RBC (Auto) 01/23/19 01/23/19 20:41 20:41 Creatine Kinase 81 CK-MB (CK-2) 0.88 Troponin I < 0.012 Impressions: Head CT 01/23/19 20:04 IMPRESSION: 1. No acute intracranial findings. Chest X-Ray 01/23/19 22:28 IMPRESSION: No evidence of acute cardiopulmonary disease. Assessment and Plan - Diagnosis (1) Occipital neuralgia of right side Is this a current diagnosis for this admission?: Yes (2) Facial weakness Is this a current diagnosis for this admission?: Yes (3) Headache Qualifiers: Headache type: unspecified Headache chronicity pattern: acute headache Intractability: intractable Qualified Code(s): R51 - Headache Is this a current diagnosis for this admission?: Yes (4) Peripheral vascular disease Is this a current diagnosis for this admission?: Yes - Plan Summary Summary: Patient CT head scan is negative for acute changes, fortunately she is unable to have an MRI of the brain due to contraindications concerning metal, Patient's clinical presentation concerning her pain, location, history is classical for occipital neuralgia.. Today have injected her right occipital foramen with 1% plain lidocaine approximately 1 cc and Depo-Medrol 4 mg approximately .125 mL's the right occipital foramen. This was DepoMedrol 40mg/ml. Aspiration was performed to ensure nonvascular injection. Patient will continue pain medication as needed. Nurses will monitor and call me for any neurologic changes. Patient was on aspirin 81 mg/day this is been discontinued and is now on Plavix 5 mg daily - Time Time Spent with patient: 35 or more minutes
[2019-01-24] MEDS ORDERED: HYDROXYZINE HCL 10 MG TABLET PO PRN (12:58)
[2019-01-24] MEDS: PANTOPRAZOLE SODIUM 40 MG TABLET.DR PO SCH (16:41)
[2019-01-24] MEDS: OXYCODONE-ACETAMINOPHEN 5-325 MG TABLET PO PRN (18:32)
[2019-01-24] MEDS ORDERED: ATORVASTATIN CALCIUM 40 MG TABLET PO SCH (22:00)
[2019-01-25] MEDS: HEPARIN SOD (PORCINE) 5,000 UNIT/ML 1 ML VIAL SUBCUT SCH ×2 (05:20→13:45)
[2019-01-25] MEDS: OXYCODONE-ACETAMINOPHEN 5-325 MG TABLET PO PRN ×2 (05:26→09:46)
[2019-01-25 06:10] LABS: HEMATOCRIT 32.4 % (36.0-47.0); HEMOGLOBIN 10.2 g/dL (12.0-15.5); MEAN CORPUSCULAR HGB CONC 31.6 g/dL (32.0-36.0); MEAN CORPUSCULAR VOLUME 89 fl (80-97); PLATELET COUNT 201 10^3/uL (150-450); RED BLOOD COUNT 3.65 10^6/uL (3.72-5.28); RED CELL DISTRIBUTION WIDTH 16.6 % (11.5-14.0); WHITE BLOOD COUNT 5.5 10^3/uL (4.0-10.5)
[2019-01-25 06:29] LABS: ANION GAP 6 (5-19); BLOOD UREA NITROGEN 15 mg/dL (7-20); CALCIUM 8.8 mg/dL (8.4-10.2); CARBON DIOXIDE 29 mmol/L (22-30); CHLORIDE 105 mmol/L (98-107); CHOLESTEROL 107.23 mg/dL (0-200); GLUCOSE 102 mg/dL (75-110); POTASSIUM 4.7 mmol/L (3.6-5.0); TRIGLYCERIDES 166 mg/dL (<150)
[2019-01-25 06:39] LABS: DIRECT LDL 46 mg/dL (<100)
[2019-01-25 06:40] LABS: VLDL CHOLESTEROL 33.2 mg/dL (10-31)
--- NOTE | 2019-01-25 07:58 | EKG REPORT ---
SEVERITY:- ABNORMAL ECG - SINUS RHYTHM RIGHT BUNDLE BRANCH BLOCK : Confirmed by: Ton Dickson 25-Jan-2019 07:57:10
[2019-01-25] MEDS: PANTOPRAZOLE SODIUM 40 MG TABLET.DR PO SCH (08:40)
[2019-01-25] MEDS: CLOPIDOGREL BISULFATE 75 MG TABLET PO SCH (09:41)
[2019-01-25] MEDS ORDERED: FUROSEMIDE 20 MG TABLET PO SCH (10:00)
[2019-01-25] MEDS ORDERED: SPIRONOLACTONE 25 MG TABLET PO SCH (10:00)
[2019-01-25] MEDS ORDERED: ESCITALOPRAM OXALATE 10 MG TABLET PO SCH (10:00)
[2019-01-25] MEDS ORDERED: ASCORBIC ACID 500 MG TABLET PO SCH (10:00)
[2019-01-25] MEDS ORDERED: ASPIRIN 81 MG TABLET, CHEWABLE PO SCH (10:00)
[2019-01-25] MEDS ORDERED: AMLODIPINE BESYLATE 5 MG TABLET PO SCH (10:00)
[2019-01-25] MEDS ORDERED: CETIRIZINE 10 MG TABLET PO SCH (10:00)
[2019-01-25] MEDS ORDERED: FERROUS SULFATE 325 MG TABLET PO SCH (10:00)
[2019-01-25] MEDS ORDERED: POTASSIUM CHLORIDE 10 MEQ CAPSULE.ER PO SCH (10:00)
[2019-01-25] MEDS ORDERED: MAGNESIUM OXIDE 400 MG TABLET PO SCH (10:00)
[2019-01-25 13:29] VITALS: BP 149/43
--- NOTE | 2019-01-25 13:48 | RADIOLOGY REPORT (SQ) ---
EXAM DESCRIPTION: CT ABD/PELVIS NO ORAL OR IV COMPLETED DATE/TIME: 01/25/2019 1:09 pm REASON FOR STUDY: retroperitoneal K92.2 GASTROINTESTINAL HEMORRHAGE, UNSPECIFIED COMPARISON: 03/14/2018. TECHNIQUE: CT scan of the abdomen and pelvis performed without intravenous or oral contrast. Images reviewed with lung, soft tissue, and bone windows. Reconstructed coronal and sagittal MPR images revi ewed. All images stored on PACS. All CT scanners at this facility use dose modulation, iterative reconstruction, and/or weight based d osing when appropriate to reduce radiation dose to as low as reasonably achievable (ALARA). [facility]: Dose Right [facility]: CareDose [facility]: Dose Right [facility]: Teradose 4D [facility]: Meez RADIATION DOSE: CT Rad equipment meets quality standard of care and radiation dose reduction techniq ues were employed. CTDIvol: 17.7 mGy. DLP: 908 mGy-cm.mGy. LIMITATIONS: None. FINDINGS: LOWER CHEST: No significant findings. Calcified granuloma in the left lung base. No nodul es or infiltrates. NON-CONTRASTED LIVER, SPLEEN, ADRENALS: Evaluation limited by lack of IV contrast. No identified sign ificant masses. PANCREAS: No masses. No peripancreatic inflammatory changes. GALLBLADDER: No identified stones by CT criteria. No inflammatory changes to suggest cholecystitis. RIGHT KIDNEY AND URETER: No suspicious masses. Assessment limited by lack of IV contrast. No signif icant calcifications. No hydronephrosis or hydroureter. LEFT KIDNEY AND URETER: No suspicious masses. Assessment limited by lack of IV contrast. No signifi cant calcifications. No hydronephrosis or hydroureter. AORTA AND RETROPERITONEUM: No aneurysm. Vascular calcifications. Iliac artery stents. No retroperi toneal masses or adenopathy. BOWEL AND PERITONEAL CAVITY: Sigmoid diverticulosis. No obvious masses or inflammatory changes. No f ree fluid. APPENDIX: Normal. PELVIS, BLADDER, AND ABDOMINAL WALL:Umbilical hernia and midline abdominal wall hernia above the umbi licus, both containing fat. No involvement of bowel. No abnormal masses. No free fluid. Bladder nor mal. BONES: No significant findings. Degenerative changes in the spine. OTHER: No other significant finding. IMPRESSION: 1. SIGMOID DIVERTICULOSIS. NO CT FINDINGS OF DIVERTICULITIS. 2. UMBILICAL HERNIA AND ABDOMINAL WALL HERNIA, BOTH CONTAINING FAT WITH NO INVOLVEMENT OF BOWEL. 3. OTHER CHRONIC FINDINGS ABOVE. NO OTHER SIGNIFICANT OR ACUTE PROCESS IN THE ABDOMEN OR PELVIS. COMMENT: Quality ID # [id number]: Final reports with documentation of one or more dose reduction techniques (e.g., Automated exposure control, adjustment of the mA and/or kV according to patient size, use of iterative reconstruction technique) TECHNICAL DOCUMENTATION: JOB ID: [id number] [employer]- All Rights Reserved Reading location - IP/workstation name: [email or web address]
--- NOTE | 2019-01-25 14:31 | Progress Note ---
Provider Note Provider Note: 01/25/[address] abdomen and pelvis without contrast prior to discharge secondary to abdominal pain. Notes #1 sigmoid diverticulosis no diverticulitis #2 umbilical hernia and abdominal wall hernia both containing fat with no involvement of bowel 3 chronic findings with no acute process in the abdomen or pelvis No relation to Lovenox injections
--- NOTE | 2019-02-02 11:12 | PDOC DISCHARGE SUMMARY ---
Impression - Admit/DC Date/PCP Admission Date/Primary Care Provider: 01/24/19 01:07 ZENY LY MD Discharge Date: 01/25/19 - Discharge Diagnosis (1) Occipital neuralgia of right side Is this a current diagnosis for this admission?: Yes (2) Facial weakness Is this a current diagnosis for this admission?: Yes (3) Headache Is this a current diagnosis for this admission?: Yes (4) Peripheral vascular disease Is this a current diagnosis for this admission?: Yes - Assessment Summary: Patient CT head scan is negative for acute changes, fortunately she is unable to have an MRI of the brain due to contraindications concerning metal, Patient's clinical presentation concerning her pain, location, history is classical for occipital neuralgia.. Today have injected her right occipital foramen with 1% plain lidocaine approximately 1 cc and Depo-Medrol 4 mg approximately .125 mL's the right occipital foramen. This was DepoMedrol 40mg/ml. Aspiration was performed to ensure nonvascular injection. Patient will continue pain medication as needed. Nurses will monitor and call me for any neurologic changes. Patient was on aspirin 81 mg/day this is been discontinued and is now on Plavix 5 mg daily 01/25/2019 She is completely headache free. His only complaint of some mild abdominal pain where she is getting her Lovenox injections. CT scan of the abdomen was performed showing no signs of retroperitoneal hemorrhage. She was discharged home to follow-up with her primary care provider in good condition. No focal neurologic deficits Out on a Medrol Dosepak and Plavix Headache with secondary to occipital neuralgia - Additional Information Resuscitation Status: Full Code Discharge Diet: As Tolerated Discharge Activity: Balance Activity w/Rest Referrals: ZENY LY MD [Primary Care Provider] - 02/11/19 3:15 pm Prescriptions: Methylprednisolone [Medrol Dosepack (4 mg/Tab) 21 Tab/Dosepak] 4 mg PO ASDIR PRN #21 tab.ds.pk PRN Reason: Clopidogrel Bisulfate [Plavix 75 mg Tablet] 75 mg PO DAILY #30 tablet Home Medications: Amlodipine Besylate [Norvasc 5 mg Tablet] 5 mg PO DAILY 01/24/19 Ascorbic Acid [Vitamin C 500 mg Tablet] 500 mg PO DAILY 01/24/19 Aspirin [Aspirin 81 mg Chewable Tablet] 81 mg PO DAILY 01/24/19 Atorvastatin Calcium [Lipitor 40 mg Tablet] 40 mg PO QHS 01/24/19 Cetirizine HCl [Zyrtec 10 mg Tablet] 10 mg PO DAILY 01/24/19 Escitalopram Oxalate [Lexapro] 20 mg PO DAILY 01/24/19 Ferrous Sulfate [Feosol 325 mg Tablet] 325 mg PO DAILY 01/24/19 Furosemide [Lasix 20 mg Tablet] 20 mg PO DAILY 01/24/19 Hydroxyzine HCl [Atarax 10 mg Tablet] 10 mg PO HSP PRN 01/24/19 Losartan Potassium [Cozaar 100 mg Tablet] 100 mg PO DAILY 01/24/19 Magnesium Oxide [Mag-Ox 400 mg Tablet] 400 mg PO DAILY 01/24/19 Metoprolol Succinate [Toprol Xl 25 mg Tab.sr] 25 mg PO DAILY 01/24/19 Pantoprazole Sodium [Protonix [address] Tablet] 40 mg PO BIDACBS 01/24/19 Potassium Chloride [Klor-Con 10 Meq Capsule ER] 10 meq PO DAILY 01/24/19 Promethazine HCl [Phenergan 25 mg Tablet] 25 mg PO Q12HP PRN 01/24/19 Spironolactone [Aldactone 25 mg Tablet] 25 mg PO DAILY 01/24/19 Tramadol HCl/Acetaminophen [Ultracet 37.5 mg/325 mg Tablet] 1 tab PO Q12HP PRN 01/24/19 Clopidogrel Bisulfate [Plavix 75 mg Tablet] 75 mg PO DAILY #30 tablet 01/25/19 Methylprednisolone [Medrol Dosepack (4 mg/Tab) 21 Tab/Dosepak] 4 mg PO ASDIR PRN #21 tab.ds.pk 01/25/19 History of Present Illiness History of Present Illness: RENETTA HARRINGTON is a 73 year old female Physical Exam Vital Signs: Temp Pulse Resp BP Pulse Ox 97.8 F 65 17 149/43 H 96 01/25/19 13:27 01/25/19 13:27 01/25/19 13:27 01/25/19 13:27 01/25/19 13:27 Results Laboratory Results: WBC 5.5 10^3/uL (4.0-10.5) 01/25/19 05:11 RBC 3.65 10^6/uL (3.72-5.28) L 01/25/19 05:11 Hgb 10.2 g/dL (12.0-15.5) L 01/25/19 05:11 Hct 32.4 % (36.0-47.0) L 01/25/19 05:11 MCV 89 fl (80-97) 01/25/19 05:11 MCH 28.0 pg (27.0-33.4) 01/25/19 05:11 MCHC 31.6 g/dL (32.0-36.0) L 01/25/19 05:11 RDW 16.6 % (11.5-14.0) H 01/25/19 05:11 Plt Count 201 10^3/uL (150-450) 01/25/19 05:11 Lymph % (Auto) 21.9 % (13-45) 01/23/19 20:41 [place] % (Auto) 12.2 % (3-13) 01/23/19 20:41 Eos % (Auto) 2.5 % (0-6) 01/23/19 20:41 Baso % (Auto) 1.3 % (0-2) 01/23/19 20:41 Absolute Neuts (auto) 5.3 10^3/uL (1.7-8.2) 01/23/19 20:41 Absolute Lymphs (auto) 1.9 10^3/uL (0.5-4.7) 01/23/19 20:41 Absolute Monos (auto) 1.0 10^3/uL (0.1-1.4) 01/23/19 20:41 Absolute Eos (auto) 0.2 10^3/uL (0.0-0.6) 01/23/19 20:41 Absolute Basos (auto) 0.1 10^3/uL (0.0-0.2) 01/23/19 20:41 Seg Neutrophils % 62.1 % (42-78) 01/23/19 20:41 ESR 53 mm/hr (0-30) H 01/24/19 17:10 PT 13.0 SEC (11.4-15.4) 01/23/19 20:41 INR 0.98 01/23/19 20:41 APTT 29.0 SEC (23.5-35.8) 01/23/19 20:41 Sodium 140.1 mmol/L (137-145) 01/25/19 05:11 Potassium 4.7 mmol/L (3.6-5.0) 01/25/19 05:11 Chloride 105 mmol/L (98-107) 01/25/19 05:11 Carbon Dioxide 29 mmol/L (22-30) 01/25/19 05:11 Anion Gap 6 (5-19) 01/25/19 05:11 BUN 15 mg/dL (7-20) 01/25/19 05:11 Creatinine 0.99 mg/dL (0.52-1.25) 01/25/19 05:11 Est GFR ( Amer) > 60 (>60) 01/25/19 05:11 Est GFR (MDRD) Non-Af 55 (>60) L 01/25/19 05:11 Glucose 102 mg/dL (75-110) 01/25/19 05:11 Calcium 8.8 mg/dL (8.4-10.2) 01/25/19 05:11 Magnesium 1.4 mg/dL (1.6-2.3) L 01/25/19 05:11 Total Bilirubin 0.5 mg/dL (0.2-1.3) 01/24/19 08:14 Direct Bilirubin 0.2 mg/dL (0.0-0.4) 01/24/19 08:14 Neonat Total Bilirubin Not Reportable 01/24/19 08:14 Neonat Direct Bilirubin Not Reportable 01/24/19 08:14 Neonat Indirect Bili Not Reportable 01/24/19 08:14 AST 19 U/L (14-36) 01/24/19 08:14 ALT 9 U/L (<35) 01/24/19 08:14 Alkaline Phosphatase 97 U/L (38-126) 01/24/19 08:14 Creatine Kinase 81 U/L (30-135) 01/23/19 20:41 CK-MB (CK-2) 0.88 ng/mL (<4.55) 01/23/19 20:41 Troponin I < 0.012 ng/mL 01/23/19 20:41 Total Protein 6.1 g/dL (6.3-8.2) L 01/24/19 08:14 Albumin 3.3 g/dL (3.5-5.0) L 01/24/19 08:14 Triglycerides 166 mg/dL (<150) H 01/25/19 05:11 Cholesterol 107.23 mg/dL (0-200) 01/25/19 05:11 LDL Cholesterol Direct 46 mg/dL (<100) 01/25/19 05:11 VLDL Cholesterol 33.2 mg/dL (10-31) H 01/25/19 05:11 HDL Cholesterol 29 mg/dL (>40) L 01/25/19 05:11 TSH 2.78 uIU/mL (0.47-4.68) 01/25/19 05:11 Free T4 0.86 ng/dL (0.78-2.19) 01/23/19 20:41 Free T3 pg/mL 2.98 pg/mL (2.77-5.27) 01/23/19 20:41 Urine Color YELLOW 01/23/19 21:38 Urine Appearance CLEAR 01/23/19 21:38 Urine pH 5.0 (5.0-9.0) 01/23/19 21:38 Ur Specific [place] 1.013 01/23/19 21:38 Urine Protein NEGATIVE mg/dL (NEGATIVE) 01/23/19 21:38 Urine Glucose (UA) NEGATIVE mg/dL (NEGATIVE) 01/23/19 21:38 Urine Ketones NEGATIVE mg/dL (NEGATIVE) 01/23/19 21:38 Urine Blood NEGATIVE (NEGATIVE) 01/23/19 21:38 Urine Nitrite NEGATIVE (NEGATIVE) 01/23/19 21:38 Urine Bilirubin NEGATIVE (NEGATIVE) 01/23/19 21:38 Urine Urobilinogen NEGATIVE mg/dL (<2.0) 01/23/19 21:38 Ur Leukocyte Esterase TRACE (NEGATIVE) H 01/23/19 21:38 Urine WBC (Auto) 2 /HPF 01/23/19 21:38 Urine RBC (Auto) 1 /HPF 01/23/19 21:38 U Hyaline Cast (Auto) 8 /LPF 01/23/19 21:38 Squamous Epi Cells Auto 4 /HPF 01/23/19 21:38 Urine Mucus (Auto) RARE /LPF 01/23/19 21:38 Urine Ascorbic Acid NEGATIVE (NEGATIVE) 01/23/19 21:38 01/23/19 20:41 CK-MB (CK-2) 0.88 Troponin I < 0.012 Impressions: Head CT 01/23/19 20:04 IMPRESSION: 1. No acute intracranial findings. Chest X-Ray 01/23/19 22:28 IMPRESSION: No evidence of acute cardiopulmonary disease. Abdomen/Pelvis CT 01/25/19 00:00 IMPRESSION: 1. SIGMOID DIVERTICULOSIS. NO CT FINDINGS OF DIVERTICULITIS. 2. UMBILICAL HERNIA AND ABDOMINAL WALL HERNIA, BOTH CONTAINING FAT WITH NO INVOLVEMENT OF BOWEL. 3. OTHER CHRONIC FINDINGS ABOVE. NO OTHER SIGNIFICANT OR ACUTE PROCESS IN THE ABDOMEN OR PELVIS. Stroke Is this a Stroke Patient?: No Acute Heart Failure - Is this a Heart Failure Patient?: No
== END 2019-01-25 14:27 | disposition home or self-care (01) ==
LOC: ER 19:53 → INTOOBSV 01-24 01:07 → EH 01-24 01:07 → 3S 01-24 02:30
PROVIDERS: ADMIT Emergency Medicine; ATTEND Emergency Medicine
DX: M54.81 Occipital neuralgia (principal); R29.810 Facial weakness; I73.9 Peripheral vascular disease, unspecified; R10.9 Unspecified abdominal pain; K42.9 Umbilical hernia without obstruction or gangrene; K43.9 Ventral hernia without obstruction or gangrene; K57.30 Diverticulosis of large intestine without perforation or abscess without bleeding; R53.1 Weakness; R29.702 NIHSS score 2; Z79.899 Other long term (current) drug therapy; Z79.82 Long term (current) use of aspirin; Z86.73 Personal history of transient ischemic attack (TIA), and cerebral infarction without residual deficits; Z86.718 Personal history of other venous thrombosis and embolism; Z90.49 Acquired absence of other specified parts of digestive tract; Z95.5 Presence of coronary angioplasty implant and graft; Z79.02 Long term (current) use of antithrombotics/antiplatelets; Z95.828 Presence of other vascular implants and grafts
CPT/HCPCS: 93005 ×2; 96376; 99285; 96361; 96374; 96375; 36415 ×3; 84439; 82553; 82550; 83735 ×2; 84443 ×2; 85025; 85027 ×2; 85652; 85610; 85730; 80048; 80053 ×2; 81001; 84484; 84481; 80061 ×2; 71045; 70450; 74176; 93010 ×2; 97530; 97162; G0378 ×2; A9270 ×19; J1644 ×2; J1030; J1885; J1170; J2550; J3490 ×2; J7030

== ENCOUNTER 2019-04-05 23:07 | Emergency (ER) | payer MEDICARE ==
[2019-04-06] MEDS ORDERED: HYDROCODONE/ACETAMINOPHEN 5-325 MG TABLET PO ONE (00:02)
--- NOTE | 2019-04-06 00:03 | ER Document Report ---
ED Medical Screen (RME) - General Chief Complaint: Neck Pain < 24hrs old Stated Complaint: NECK/SHOULDER PAIN Time Seen by Provider: 04/05/19 23:59 Primary Care Provider: ZENY LY MD [Primary Care Provider] - Follow up as needed Notes: Patient is a 73-year-old female who presents to the emergency department with a chief complaint of left neck pain. Patient states that she has history of a subclavian bypass in that same area. She has been taking Tylenol and applying heat to help with her pain, but has had little relief. Exam: Tenderness and edema noted to left side of neck at clavicle area. I have greeted and performed a rapid initial assessment of this patient. A comprehensive ED assessment and evaluation of the patient, analysis of test results and completion of medical decision making process will be conducted by an additional ED providers. TRAVEL OUTSIDE OF THE [place] IN LAST 30 DAYS: No - Related Data Allergies/Adverse Reactions: meperidine HCl [From Demerol] Allergy (Unknown, Verified 04/05/19 23:53) metoclopramide HCl [From Reglan] Allergy (Unknown, Verified 04/05/19 23:53) IVP dye Allergy (Uncoded 04/05/19 23:53) Home Medications: bp meds, doesn't have new list see previous list per pt Past Medical History - Social History Chew tobacco use (# tins/day): No Frequency of alcohol use: Social Drug Abuse: None - Past Medical History Cardiac Medical History: Reports: Hx Congestive Heart Failure, Hx Coronary Artery Disease, Hx DVT, Hx Hypercholesterolemia, Hx Hypertension, Hx Peripheral Vascular Disease Denies: Hx Atrial Fibrillation, Hx Heart Attack, Hx Pulmonary Embolism Pulmonary Medical History: Reports: Hx Bronchitis, Hx COPD, Hx Sleep Apnea Denies: Hx Asthma Neurological Medical History: Denies: Hx Seizures Endocrine Medical History: Denies: Hx Diabetes Mellitus Type 1, Hx Diabetes Mellitus Type 2, Hx Hyperthyroidism, Hx Hypothyroidism GI Medical History: Reports: Hx Diverticulitis, Hx Gastroesophageal Reflux Disease. Denies: Hx Cirrhosis, Hx Crohn's Disease, Hx Hepatitis, Hx Ulcerative Colitis Musculoskeltal Medical History: Denies Hx Arthritis, Denies Hx Gout Skin Medical History: Denies Hx Eczema, Denies Hx Psoriasis Infectious Medical History: Denies: Hx Hepatitis Past Surgical History: Reports: Hx Appendectomy, Hx Cardiac Catheterization, Hx Carotid Endarterectomy - Right, Hx Cholecystectomy, Hx Herniorrhaphy, Hx Hysterectomy, Hx Vascular Surgery - Stents: Bilateral subclavian bypass, bilateral renal arteries, aortic stent Physical Exam - Vital signs Vitals: Temp Pulse Resp BP Pulse Ox 99.5 F 81 20 184/58 H 96 04/05/19 23:21 04/05/19 23:21 04/05/19 23:21 04/05/19 23:21 04/05/19 23:21 Course - Vital Signs Vital signs: Temp Pulse Resp BP Pulse Ox 99.5 F 81 20 184/58 H 96 04/05/19 23:21 04/05/19 23:21 04/05/19 23:21 04/05/19 23:21 04/05/19 23:21 Doctor's Discharge - Discharge Referrals: ZENY LY MD [Primary Care Provider] - Follow up as needed
[2019-04-06 00:22] LABS: ABSOLUTE BASOPHILS # (AUTO) 0.1 10^3/uL (0.0-0.2); ABSOLUTE EOSINOPHILS # (AUTO) 0.2 10^3/uL (0.0-0.6); ABSOLUTE MONOCYTES (AUTO) 1.3 10^3/uL (0.1-1.4); BASOPHILS % (AUTO) 0.8 % (0-2); EOSINOPHILS % (AUTO) 1.8 % (0-6); HEMATOCRIT 39.1 % (36.0-47.0); HEMOGLOBIN 12.8 g/dL (12.0-15.5); LYMPHOCYTES % (AUTO) 17.4 % (13-45); MEAN CORPUSCULAR HEMOGLOBIN 28.2 pg (27.0-33.4); MEAN CORPUSCULAR HGB CONC 32.7 g/dL (32.0-36.0); MEAN CORPUSCULAR VOLUME 87 fl (80-97); PLATELET COUNT 289 10^3/uL (150-450); RED BLOOD COUNT 4.52 10^6/uL (3.72-5.28); RED CELL DISTRIBUTION WIDTH 15.1 % (11.5-14.0); TOTAL CELLS COUNTED % (AUTO) 100 %; WHITE BLOOD COUNT 11.6 10^3/uL (4.0-10.5)
[2019-04-06 00:35] LABS: INTERNATIONAL RATION (INR) 0.95; PARTIAL THROMBOPLASTIN TIME 29.6 SEC (23.5-35.8); PROTHROMBIN TIME 12.7 SEC (11.4-15.4)
[2019-04-06 00:44] LABS: ALBUMIN 4.3 g/dL (3.5-5.0); ALKALINE PHOSPHATASE 169 U/L (38-126); ANION GAP 14 (5-19); ASPARTATE AMINO TRANSFERASE 29 U/L (14-36); BILIRUBIN,DIRECT 0.3 mg/dL (0.0-0.4); BILIRUBIN,TOTAL 0.5 mg/dL (0.2-1.3); BLOOD UREA NITROGEN 18 mg/dL (7-20); CALCIUM 9.8 mg/dL (8.4-10.2); CARBON DIOXIDE 27 mmol/L (22-30); CHLORIDE 100 mmol/L (98-107); GLUCOSE 124 mg/dL (75-110); TOTAL PROTEIN 7.8 g/dL (6.3-8.2)
[2019-04-06] MEDS ORDERED: METHYLPREDNISOLONE INJ 125 MG/2 ML SDV IV ONE (02:43)
[2019-04-06] MEDS ORDERED: DIPHENHYDRAMINE HCL 50 MG/ML VIAL IV ONE (02:44)
[2019-04-06] MEDS ORDERED: FAMOTIDINE INJ/PF 20 MG/2 ML SDV IV ONE (02:44)
--- NOTE | 2019-04-06 05:00 | RADIOLOGY REPORT (SQ) ---
EXAM DESCRIPTION: CT NECK WITH IV CONTRAST COMPLETED DATE/TME: 04/06/2019 00:07 CLINICAL HISTORY: 73 years, Female, neck pain; hx of subclavian bypass COMPARISON: None. TECHNIQUE: Axial CT images of the head and neck were obtained after the administration of IV contrast. Sagittal and coronal reformats were performed. DL [id number] Images stored on PACS. All CT scanners at this facility use dose modulation, iterative reconstruction, and/or weight based dosing when appropriate to reduce radiation dose to as low as reasonably achievable (ALARA). [facility]: Dose Right [facility]: CareDose [facility]: Dose Right [facility]: Teradose 4D [facility]: [employer] LIMITATIONS: None. FINDINGS: A patent bypass is noted from the left common carotid to the left subclavian artery. A stent is noted within the proximal left subclavian artery. There is no concerning asymmetry along the aerodigestive tract. The submandibular, parotid, and thyroid glands appear normal. The palatine tonsils appear unremarkable. No displacement of the parapharyngeal fat. The phlebotomist medical lab assistant space appears unremarkable. The prevertebral soft tissues are normal. There are no lytic or blastic bone lesions. The central airways are patent. The heart is normal in size. There is no pericardial effusion. There is no mediastinal or hilar lymphadenopathy. There are atherosclerotic calcifications of the thoracic aorta. No evidence of an aneurysm or dissection. There are atherosclerotic calcifications of the coronary arteries. There is no focal consolidation. There is no pneumothorax or pleural effusion. There is a calcified granuloma within the left lower lobe. There are no lytic or blastic bone lesions. The visualized portions of the upper abdomen are unremarkable. IMPRESSION: No acute findings in the chest or neck. Patent left carotid-subclavian bypass. TECHNICAL DOCUMENTATION: Quality ID # 436: Final reports with documentation of one or more dose reduction techniques (e.g., Automated exposure control, adjustment of the mA and/or kV according to patient size, use of iterative reconstruction technique) copyright 2011 [employer]- All Rights Reserved
--- NOTE | 2019-04-06 05:01 | RADIOLOGY REPORT (SQ) ---
EXAM DESCRIPTION: CT CHEST WITH IV CONTRAST COMPLETED DATE/TME: 04/06/2019 00:07 CLINICAL HISTORY: 73 years, Female, neck pain; hx of subclavian bypass. CREAT 0.84 COMPARISON: None. TECHNIQUE: Axial CT images of the head and neck were obtained after the administration of IV contrast. Sagittal and coronal reformats were performed. DL 757 Images stored on PACS. All CT scanners at this facility use dose modulation, iterative reconstruction, and/or weight based dosing when appropriate to reduce radiation dose to as low as reasonably achievable (ALARA). [facility]: Dose Right [facility]: CareDose [facility]: Dose Right [facility]: Teradose 4D [facility]: [employer] LIMITATIONS: None. FINDINGS: A patent bypass is noted from the left common carotid to the left subclavian artery. A stent is noted within the proximal left subclavian artery. There is no concerning asymmetry along the aerodigestive tract. The submandibular, parotid, and thyroid glands appear normal. The palatine tonsils appear unremarkable. No displacement of the parapharyngeal fat. The flower stripper space appears unremarkable. The prevertebral soft tissues are normal. There are no lytic or blastic bone lesions. The central airways are patent. The heart is normal in size. There is no pericardial effusion. There is no mediastinal or hilar lymphadenopathy. There are atherosclerotic calcifications of the thoracic aorta. No evidence of an aneurysm or dissection. There are atherosclerotic calcifications of the coronary arteries. There is no focal consolidation. There is no pneumothorax or pleural effusion. There is a calcified granuloma within the left lower lobe. There are no lytic or blastic bone lesions. The visualized portions of the upper abdomen are unremarkable. IMPRESSION: No acute findings in the chest or neck. Patent left carotid-subclavian bypass. TECHNICAL DOCUMENTATION: Quality ID # [id number]: Final reports with documentation of one or more dose reduction techniques (e.g., Automated exposure control, adjustment of the mA and/or kV according to patient size, use of iterative reconstruction technique) copyright 2011 [employer]- All Rights Reserved
[2019-04-06] MEDS ORDERED: KETOROLAC TROMETHAMINE INJ/PF 30 MG/1 ML SDV IV ONE (07:00)
--- NOTE | 2019-04-06 07:06 | ER Document Report ---
ED Neck/Back Problem - General Chief Complaint: Neck Pain < 24hrs old Stated Complaint: NECK/SHOULDER PAIN Time Seen by Provider: 04/05/19 23:59 Primary Care Provider: ZENY LY MD [Primary Care Provider] - Follow up as needed TRAVEL OUTSIDE OF THE [place] IN LAST 30 DAYS: No - HPI Patient complains to provider of: Pain - pt. with c/o L-sided neck pain since yesterday. Denies trauma. Had subclavian bypass procedure earlier this year at [facility]. She has some radiating pain to L arm - Related Data Allergies/Adverse Reactions: meperidine HCl [From Demerol] Allergy (Unknown, Verified 04/05/19 23:53) metoclopramide HCl [From Reglan] Allergy (Unknown, Verified 04/05/19 23:53) IVP dye Allergy (Uncoded 04/05/19 23:53) Home Medications: bp meds, doesn't have new list see previous list per pt Past Medical History - General Information source: Patient, Relative - Social History Smoking Status: Former Smoker Chew tobacco use (# tins/day): No Frequency of alcohol use: Social Drug Abuse: None Family History: CAD, DM, Hypertension, Other - Alzheimer's disease. denies: Malignancy Patient has suicidal ideation: No Patient has homicidal ideation: No - Past Medical History Cardiac Medical History: Reports: Hx Congestive Heart Failure, Hx Coronary Artery Disease, Hx DVT, Hx Hypercholesterolemia, Hx Hypertension, Hx Peripheral Vascular Disease Denies: Hx Atrial Fibrillation, Hx Heart Attack, Hx Pulmonary Embolism Pulmonary Medical History: Reports: Hx Bronchitis, Hx COPD, Hx Sleep Apnea Denies: Hx Asthma Neurological Medical History: Denies: Hx Seizures Endocrine Medical History: Denies: Hx Diabetes Mellitus Type 1, Hx Diabetes Mellitus Type 2, Hx Hyperthyroidism, Hx Hypothyroidism GI Medical History: Reports: Hx Diverticulitis, Hx Gastroesophageal Reflux Disease. Denies: Hx Cirrhosis, Hx Crohn's Disease, Hx Hepatitis, Hx Ulcerative Colitis Musculoskeletal Medical History: Denies Hx Arthritis, Denies Hx Gout Skin Medical History: Denies Hx Eczema, Denies Hx Psoriasis Infectious Medical History: Denies: Hx Hepatitis Past Surgical History: Reports: Hx Appendectomy, Hx Cardiac Catheterization, Hx Carotid Endarterectomy - Right, Hx Cholecystectomy, Hx Herniorrhaphy, Hx Hysterectomy, Hx Vascular Surgery - Stents: Bilateral subclavian bypass, bilateral renal arteries, aortic stent - Immunizations Hx Pneumococcal Vaccination: 04/07/16 Review of Systems - Review of Systems EENT: No symptoms reported Cardiovascular: No symptoms reported Respiratory: No symptoms reported Gastrointestinal: No symptoms reported Genitourinary: No symptoms reported Musculoskeletal: See HPI, Neck pain Neurological/Psychological: No symptoms reported -: Yes All other systems reviewed and negative Physical Exam - Vital signs Vitals: Temp Pulse Resp BP Pulse Ox 99.5 F 81 20 184/58 H 96 04/05/19 23:21 04/05/19 23:21 04/05/19 23:21 04/05/19 23:21 04/05/19 23:21 - General General appearance: Alert In distress: Mild - HEENT Head: Normocephalic Pupils: PERRL Pharynx: Normal Neck: Other - there is min. TTP of the L side of the neck diffusely with strong carotid pulse. FROM with N/V intact - Respiratory Respiratory status: No respiratory distress Chest status: Nontender Breath sounds: Normal - Cardiovascular Rhythm: Regular Heart sounds: Normal auscultation - Abdominal Bowel sounds: Normal Tenderness: Nontender Organomegaly: No organomegaly - Extremities General upper extremity: Normal inspection General lower extremity: Normal inspection Course - Re-evaluation Re-evalutation: 04/06/19 07:20 Pt. feels better after meds -- I have explained to her and her family that the graft appears patent on the scans and the issue with her neck and shoulder appears musculoskeletal. They will F/U with her PCP in the next day or 2. - Vital Signs Vital signs: Temp Pulse Resp BP Pulse Ox 97.7 F 85 18 167/67 H 94 04/06/19 06:01 04/06/19 02:44 04/06/19 06:01 04/06/19 06:01 04/06/19 06:01 - Laboratory Result Diagrams: 04/06/19 00:10 04/06/19 00:10 Laboratory results interpreted by me: 04/06/19 04/06/19 00:10 00:10 WBC 11.6 H RDW 15.1 H Glucose 124 H Alkaline Phosphatase 169 H - Diagnostic Test Radiology reviewed: Reports reviewed - Graft open -- otherwise neg CT of neck and chest Discharge - Discharge Clinical Impression: Neck pain Condition: Stable Disposition: HOME, SELF-CARE Additional Instructions: rest, take meds as prescribed, return if worse Prescriptions: Cyclobenzaprine HCl [Flexeril 10 mg Tablet] 10 mg PO TIDP PRN #15 tab PRN Reason: Etodolac [Lodine] 400 mg PO BID #14 tablet Referrals: ZENY LY MD [Primary Care Provider] - Follow up as needed
[2019-04-06 07:29] VITALS: BP 180/74
== END 2019-04-06 07:30 | disposition home or self-care (01) ==
LOC: ER 23:07
DX: M54.2 Cervicalgia (principal); I25.10 Atherosclerotic heart disease of native coronary artery without angina pectoris; I10 Essential (primary) hypertension; J44.9 Chronic obstructive pulmonary disease, unspecified; Z95.828 Presence of other vascular implants and grafts; Z79.899 Other long term (current) drug therapy; Z87.891 Personal history of nicotine dependence; Z88.6 Allergy status to analgesic agent; Z88.5 Allergy status to narcotic agent; Z88.8 Allergy status to other drugs, medicaments and biological substances; Z91.041 Radiographic dye allergy status
CPT/HCPCS: 99284; 96374; 96375; 36415; 85025; 85610; 85730; 80053; 70491; 71260; L3650; J1200; J2930; J1885; S0028; A9270